=== PATIENT | male | born 1980 | race Caucasian/White ===

== ENCOUNTER 2019-01-24 12:50 | Emergency (ER) | payer BC, SELFPAY ==
[2019-01-24 12:51] VITALS: BP 168/92; PULSE 108; RESP 18; TEMP 36.9; O2SAT 100; BMI 30.1
--- NOTE | 2019-01-24 13:08 | RAD_ITS ---
STUDY: X-RAY CHEST REASON FOR EXAM: Male, 38 years old. Chest pain for 2 weeks. TECHNIQUE: Single AP portable view of the chest. COMPARISON: None. FINDINGS: The lungs are clear and expanded. There is no demonstrated pleural abnormality. Normal size heart. Normal mediastinum and vin. Normal visualized pulmonary arteries. Normal visualized aortic arch and descending thoracic aorta. Normal visualized thoracic spine. Normal visualized ribs, clavicles, and shoulders. There is no demonstrated abnormality of the visualized soft tissue structures of the upper abdomen. RAD/Chest 1 View (Portable) IMPRESSION: Normal x-ray examination of the chest. Electronically Signed: Brent Cavanaugh, at 14:36 EST , Service support ,
--- NOTE | 2019-01-24 13:08 | EKG12_ITS ---
Test Reason : CP Blood Pressure : / mmHG Vent. Rate : 091 BPM Atrial Rate : 091 BPM P-R Int : 156 ms QRS Dur : 076 ms QT Int : 334 ms P-R-T Axes : 072 035 001 degrees QTc Int : 410 ms Normal sinus rhythm Possible Left atrial enlargement Nonspecific ST and T wave abnormality Abnormal ECG Confirmed by JAQUELINE WATERS, ADARSH ([id number]), editor & co founder MORGAN TOSCANO ([id number]) on 01/28/2019 9:49:50 AM Referred By: KIRSTEN/BB Confirmed By:ADARSH PARSONS MD
--- NOTE | 2019-01-24 13:27 | ED.RN ---
NO OLD EKG
[2019-01-24 13:31] LABS: Absolute Lymphocyte Count 0.79 X10^3/ul (0.83-4.51); Absolute Neutrophil Count 4.3 X10^3/uL (2.0-7.7); Basophil# 0.01 X10^3/uL; Basophil% 0.2 % (0-1); Eosinophil# 0.07 X10^3/uL; Eosinophils% 1.2 % (0-5); Hematocrit 45.7 % (40-54); Hemoglobin 15.4 g/dl (13.0-16.5); Lymphocyte # 0.79 X10^3/ul (4.0); Lymphocyte % 13.8 % (19-41); Mean Corp Hgb Conc 33.7 g/gl (32-36); Mean Corpuscular Hgb 31.4 pg (27.0-32.0); Mean Corpuscular Volume 93.1 fL (80-94); Mean Platelet Vol. 10.8 fl (6.2-12.0); Monocyte# 0.53 X10^3/uL; Monocyte% 9.3 % (0-10); Neutrophil # 4.31 X10^3/uL (2.7-7.7); Neutrophil % 75.3 % (47-70); Platelet Count 200 K/mm3 (150-450); RBC Distribution Width CV 12.8 % (11.6-14.6); RBC Distribution Width SD 42.7 fl (35.1-43.9); Red Blood Count 4.91 M/mm3 (4.6-6.2); White Blood Count 5.7 K/mm3 (4.4-11.0)
[2019-01-24 13:32] LABS: POSITIVE COUNT NO; POSITIVE DIFFERENTIAL NO; POSITIVE MORPHOLOGY NO
[2019-01-24 13:46] LABS: Anion Gap 7 (5-15); BUN 14 mg/dL (7-18); BUN/Creat Ratio 13.9 RATIO (10-20); Calcium,Total 8.8 mg/dL (8.5-10.1); Chloride 105 mmol/L (98-107); Creatinine, Serum 1.01 mg/dL (0.70-1.30); EST Glomerular Filtration Rate 87 mL/min (>60); Est Glom Filt Rate - Afr Amer 105 mL/min (>60); Estimated Creatinine Clearance 103.55 ml/min; Glucose 126 mg/dL (74-106); Potassium 3.7 mmol/L (3.5-5.1); Sodium Level 137 mmol/L (136-145)
--- NOTE | 2019-01-24 14:14 | ED.RN ---
PT SEEN BY MD IN TRIAGE, DID NOT GO BACK TO ED ROOM.
--- NOTE | 2019-01-24 14:15 | ED.VIS.GEN ---
History of Present Illness Chief Complaint: Chest Pain Informant: Patient Onset: Weeks - Several Timing: Intermittent, Lasts - 20 minutes or so, more persistent last day or 2 Quality: Aching Location: substernal Current Severity: Mild Maximum Severity: Moderate Worsened by: Nothing in particular Relieved by: Nothing, resolve spontaneously and gradually Associated Symptoms: A little difficult to take a deep breath but not pleuritic, no dyspnea Narrative: No other associated symptoms. No radiation of discomfort or arm discomfort. No syncope. No palpitations. Patient states he had some high blood pressure readings recently and he went to urgent care today and it was 200 systolic. They referred him to the ED out of caution. He used to smoke but stopped a month ago. He takes no medications for any medical problems, sees his doctor in but not routinely and they have never said anything about his blood pressure although he has not been there in the past couple months. Patient denies any recent travel, immobilization no history of DVT or PE. No leg pain or swelling recently. States he has been doing 45 minutes of cardio after weight lifting at the gym and does not have the symptoms with that exertion. Past Medical History - Allergies and Home Meds Allergies/Adverse Reactions: Allergies bee venom protein (honey bee) Allergy (Verified 01/24/19 12:54) Anaphylaxis ketorolac [From Toradol] Allergy (Verified 01/24/19 12:54) Shortness of breath Penicillins Allergy (Verified 01/24/19 12:54) Hives Primary Care Physician: Dieudonne Contreras MD [Primary Care Provider] - Past Medical History: None Surgical History: no surgical history Lives: Spouse/ Significant Other Smoking Status: Former smoker Review of Systems General: Denies: Chills, Fever, Sweats Eyes: Denies: Visual changes - bilaterally, Diplopia ENT: Denies: Rhinorrhea, Sore throat Cardiovascular: Reports: Chest pain. Denies: Palpitations Respiratory: Denies: Dyspnea, Cough, Dyspnea on exertion Gastrointestinal: Denies: Abdominal pain, Nausea, Vomiting, Diarrhea, Melena, Hematochezia Genitourinary: Denies: Dysuria, Hematuria, Frequency Musculoskeletal: Denies: Back pain, Swelling, Extremity Pain Skin: Denies: Rash, Wounds Neurological: Denies: Headache, Weakness, Numbness Physical Exam Vital Signs/Narrative: Vital Signs Temp Pulse Resp BP Pulse Ox 01/24/19 12:51 98.5 F 108 H 18 168/92 H 100 Inital Vital Signs reviewed: Yes General: Well nourished, Well developed, No Acute Distress Head: Normocephalic, Atraumatic Eyes: Perrl, EOMI ENT: Moist mucous membranes, No rhinorrhea Neck: Supple, Nontender Cardiovascular: Regular rate, Regular rhythm, No murmurs, Normal S1, Normal S2 Respiratory: No distress, CTA bilaterally, Chest nontender Abdomen: Soft, Nontender, Nondistended, Normal bowel sounds Back: Nontender, Normal Inspection Extremities: Nontender, No edema Skin: Normal color, No rash Neurological: Alert, Oriented x3, Cranial nerves II-XII grossly intact, Normal Strength, Normal Sensation Psychological: Normal affect, Normal Mood Diagnostic/Tx/Re-eval 01/24/19 13:08 Chest 1 View (Portable) [RAD] Stat Laboratory Results 01/24/19 01/24/19 13:25 13:25 WBC 5.7 RBC 4.91 Hgb 15.4 Hct 45.7 MCV 93.1 MCH 31.4 MCHC 33.7 RDW 12.8 RDW Differential 42.7 Plt Count 200 MPV 10.8 Immature Gran % (Auto) 0.200 Neut % (Auto) 75.3 H Lymph % (Auto) 13.8 L Flagler % (Auto) 9.3 Eos % (Auto) 1.2 Baso % (Auto) 0.2 Absolute Neuts (auto) 4.3 Absolute Lymphs (auto) 0.79 L Total Counted Not Reportable Sodium 137 Potassium 3.7 Chloride 105 Carbon Dioxide 25.0 Anion Gap 7 BUN 14 Creatinine 1.01 Estim Creat Clear Calc 103.55 Est GFR (MDRD) Af Amer 105 Est GFR (MDRD) Non-Af 87 BUN/Creatinine Ratio 13.9 Glucose 126 H Calcium 8.8 Troponin I < 0.015 - Rhythm Strip Rhythm Strip: Sinus Rhythm Rate: 90 Ectopy: None - EKG Initial EKG Interpretation: Sinus Rhythm, No Acute Injury Pattern, Non-Specific ST Changes - Inferolaterally. No old available for comparison. Prior: No Prior - Medical Decision Making Patient's DIANE risk score is 0. His heart score is 1 for an abnormal nonspecific EKG, but it is only relatively flattened T waves. There is no ST segment deviation. His labs are okay, troponin is negative. He has been having this for weeks. I do not think he needs to be admitted, but I do recommend putting him on antihypertensive and have him follow-up closely with his doctor, he may need an outpatient stress test. He does not have the discomfort at this time, I recommend trying aspirin or Mylanta the next time he gets the discomfort, and to return to the ER if he feels worse or has other associated symptoms. He is comfortable with this overall plan. We will place him on lisinopril 10 mg. His blood pressure is 160s here in the ER. ED Disposition - Plan for ED Patient: Disposition: Home or Assisted Living Diagnosis: Chest pain, unspecified, Accelerated hypertension Instructions: ED Chest Pain Atypical Unkn Cause Prescriptions: Lisinopril [Zestril] 10 mg PO DAILY #30 tab Referrals: Dieudonne Contreras MD [Primary Care Provider] - 3-5 Days
[2019-01-24 14:31] VITALS: BP 162/101; PULSE 74; RESP 18; O2SAT 99
== END 2019-01-24 14:44 | disposition home or self-care (01) ==
PROVIDERS: Emergency Provider Emergency Medicine; Family Provider Family Medicine
DX: I10 Essential (primary) hypertension (principal); R07.9 Chest pain, unspecified; Z79.899 Other long term (current) drug therapy; Z87.891 Personal history of nicotine dependence
CPT/HCPCS: 71045; 80048; 84484; 85025; 93005; 99283